=== PATIENT | female | born 1950 | race African-American/Black ===

== ENCOUNTER 2018-03-13 15:07 | Observation (INO) | payer MEDICARE, MEDICAID ==
--- NOTE | 2018-03-13 17:37 | RAD ---
PORTABLE CHEST 1 VIEW: Date: 03/11/18 Time: 1638 hours HISTORY: Dyspnea. FINDINGS: The heart size is borderline. The aorta is tortuous. The lungs are expanded without focal areas of co nsolidation, pneumothoraces, or pleural effusions. There is no evidence of monique pulmonary edema. IMPRESSION: No acute process. POS: SENA
[2018-03-13 18:50] LABS: Bilirubin Negative (Negative); Blood, Urine Negative (Negative); Clarity CLEAR (Clear); Glucose, Urine (Dipstick) Negative (Negative); Leukocyte Negative (Negative); Nitrite Negative (Negative); Protein, Urine (Dipstick) Negative (Neg-Trace); Specific Gravity, Urine 1.008 (1.002-1.036); Urobilinogen 0.2 mg/dL (0.2-1.0); pH, Urine 7.5 (5.0-9.0)
[2018-03-13 19:04] LABS: #Eosinphils 0.1 thou/uL (0.0-0.7); #Monocytes 0.6 thou/uL (0.11-0.59); #Neutrophils 6.1 thou/uL (1.40-6.50); %Basophils 0.2 % (0.0-1.0); %Eosinophils 0.8 % (0.0-10.0); %Lymphocytes 22.6 % (21.0-51.0); %Monocytes 7.2 % (0.0-10.0); %Neutrophils 69.1 % (42.0-75.0); Hemoglobin 11.2 g/dL (12.0-16.0); Mean Corpuscular HGB CONC 32.4 g/dL (32.0-36.0); Mean Corpuscular Hemoglobin 31.5 pg (27.0-31.0); Mean Corpuscular Volume 97.3 fL (78.0-98.0); Platelet Count 315 thou/uL (130-400); RBC Distribution Width 12.8 % (11.5-14.5); Red Blood Cell (RBC) Count 3.57 mill/uL (4.20-5.40); White Blood Cell (WBC) Count 8.8 thou/uL (4.8-10.8)
[2018-03-13 19:25] LABS: ALT (SGPT) 13 U/L (8-55); AST (SGOT) 16 U/L (5-34); Albumin 4.1 g/dL (3.4-4.8); Alkaline Phosphatase 84 U/L (40-150); Anion Gap 13 mmol/L (10-20); BUN (Urea Nitrogen) 15 mg/dL (9.8-20.1); Bilirubin, Total 0.3 mg/dL (0.2-1.2); CK (CPK) 450 U/L (29-168); Calc. Creatinine Clearance 0 mL/min (70-130); Calcium 9.5 mg/dL (7.8-10.44); Carbon Dioxide 24 mmol/L (23-31); Chloride 108 mmol/L (98-107); Estimated GFR-MDRD 80; Globulin 3.2 g/dL (2.4-3.5); Glucose 102 mg/dL (80-115); Lipase 16 U/L (8-78); Potassium 3.9 mmol/L (3.5-5.1); Protein, Total 7.3 g/dL (6.0-8.3); Sodium 141 mmol/L (136-145)
[2018-03-13 19:29] LABS: CKMB 1.2 ng/mL (0-6.6); Troponin I Less than 0.010 ng/mL (< 0.028)
[2018-03-13] MEDS ORDERED: Nitroglycerin 2% Ointment 1 INCH/1 GM Packet ONE (20:25)
[2018-03-13 23:02] LABS: Troponin I Less than 0.010 ng/mL (< 0.028)
[2018-03-13] MEDS ORDERED: Ondansetron ODT 4 MG TAB SL PRN (23:04)
[2018-03-13] MEDS ORDERED: Acetaminophen 325 MG TAB PO PRN (23:04)
[2018-03-13] MEDS ORDERED: Ondansetron HCl/PF 4 MG/2 ML Vial IVP PRN (23:04)
[2018-03-13 23:09] VITALS: BMI 47.2
--- NOTE | 2018-03-14 11:04 | HP ---
DATE OF ADMISSION: 03/14/2018 PRIMARY CARE PROVIDER: Dr. Jose Mike. CHIEF COMPLAINT: Knee pain. HISTORY OF PRESENT ILLNESS: This is a 67-year-old -[place] African female who presented to [facility] Emergency Department complaining of bilateral knee pain. The patient states she has had p ain in the knees for over 20 years, worse in the last 12 years, limiting her mobility, necessitating the use of a rolling walker for mobilization. The patient denied any direct injury, trauma, but does state she has lower extremity swelling which is chronic involving her ankles and tops of her feet. The patient denied any specific change to her chronic medication regimen and states she has daily cristhian n in her knees. The patient has been evaluated in the past by the Orthopedic Service with summer tirob for conservative management. The patient has taken Tylenol and Randall aspirin for relief. The patient denies any specific associated symptoms, including chest pain, shortness of breath, cough, fe efren, or unilateral lower extremity swelling. The patient states her knee pain got worse after caring for her ill father, helping him transfer from bed to wheelchair in the home. In the emergency room, the patient received aspirin 324 mg and transdermal nitroglycerin after questionable elevated blood pressure. Highest recorded blood pressure was 188/79. The patient states she takes ranitidine, and oxybutynin chronically. PAST MEDICAL HISTORY: 1. Hyperlipidemia. 2. Hypertension. 3. Morbid obesity. 4. Degenerative joint disease/osteoarthritis. PAST SURGICAL HISTORY: Status post hysterectomy. CURRENT MEDICATIONS: 1. Ranitidine 150 mg p.o. daily. 2. Oxybutynin 5 mg p.o. daily. ALLERGIES: IBUPROFEN. FAMILY HISTORY: Positive for hypertension. SOCIAL HISTORY: The patient resides in [place], [place]. No current alcohol, tobacco or illicit drug use. Ambulates with use of a rolling walker. Disabled. REVIEW OF SYSTEMS: The following complete review of systems was negative, unless otherwise mentioned in the HPI or below: Constitutional: Weight loss or gain, ability to conduct usual activities. Skin: Rash, itching. Eyes: Double vision, pain. ENT/Mouth: Nose bleeding, neck stiffness, pain, tenderness. Cardiovascular: Palpitations, dyspnea on exertion, orthopnea. Respiratory: Shortness of breath, wheezing, cough, hemoptysis, fever or night sweats. Gastrointestinal: Poor appetite, abdominal pain, heartburn, nausea, vomiting, constipation, or diarr hea. Genitourinary: Urgency, frequency, dysuria, nocturia. Musculoskeletal: Pain, swelling. Neurologic/Psychiatric: Anxiety, depression. Allergy/Immunologic: Skin rash, bleeding tendency. PHYSICAL EXAMINATION: VITAL SIGNS: Blood pressure 176/78, pulse 80, respiratory rate 20, temperature 98.6 degrees Fahrenhe it, O2 saturation 99% on room air. GENERAL APPEARANCE: This is a 67-year-old -[place] African female, alert and oriented x3, pleasant, conversant, talkative, in no acute distress. HEENT: Pupils are equal, round, and reactive to light and accommodation. Extraocular muscles are in tact. No scleral icterus, no conjunctival injection. Nares patent. OP is clear. Teeth in fair rep air. NECK: Supple, no cervical adenopathy, no thyromegaly, no carotid bruits, no JVD appreciated. Cervic al spine with full active and passive range of motion. CHEST: Lungs are clear to auscultation bilaterally. CARDIOVASCULAR: S1, S2, without noted murmur, rub or gallop. ABDOMEN: Obese, soft, nontender, nondistended. Bowel sounds are positive in all four quadrants. Th ere is no hepatosplenomegaly, no abdominal bruits, no rebound or guarding appreciated. EXTREMITIES: Warm and dry with fair turgor. Bilateral edema below the knee to the dorsum of the fee t bilaterally. Chronic skin changes consistent with venous stasis. Chronic lymphedema. Pulses are palpable distally at the dorsalis pedis, posterior tibial, and popliteal arteries bilaterally. Capil krishan refill less than 2 seconds. NEUROLOGIC: Cranial nerves II through XII are grossly intact. No focal or lateralizing signs apprec iated. MUSCULOSKELETAL: Mild tenderness to palpation along the bilateral joint line of the knees. No palpa ble mass. No fluctuance noted. No calor or erythema noted. PERTINENT LABORATORY DATA AND X-RAY FINDINGS: BNP 102. Troponin negative x1. EKG dated 03/13/2018 by my interpretation shows sinus mechanism with heart rates in the 80s. Attenuated R waves noted in the precordial leads. Normal axis. No acute ST-T wave changes appreciated. Portable chest x-ray sh owed no acute cardiopulmonary process. ASSESSMENT AND PLAN: 1. Bilateral knee pain. The patient's clinical exam and history consistent with osteoarthritis of b ilateral knees. Recommend orthopedic outpatient followup for further evaluation to include radiograp hic evaluation and consideration for outpatient physical therapy and/or consideration for surgical in tervention. Trial of tramadol 50 mg p.o. q.6 hours p.r.n. pain. 2. Hypertension, labile. Recommend outpatient follow up with primary care provider for further eval uation and serial monitoring. 3. Morbid obesity. Recommend weight loss program and heart healthy diet. Recommend outpatient phys ical therapy and supervised exercise regimen. 4. Overactive bladder. Continue oxybutynin 5 mg daily. 5. Code status is full. Surrogate medical decision maker is patient's son. DISPOSITION: Discharged home on 03/14/2018. FOLLOWUP: Follow up with her primary care provider, Dr. Jose Mike. The patient recomme nded to follow up with Dr. Nicole with Orthopedic Surgery [facility] and to call his office for appointme nt, time and date.
[2018-03-14] MEDS ORDERED: traMADol HCl 50 MG TAB PO SCH (12:15)
[2018-03-14 13:12] VITALS: BP 148/68; TEMP 98.1
[2018-03-14 17:03] LABS: Troponin I Less than 0.010 ng/mL (< 0.028)
== END 2018-03-14 15:10 | disposition home or self-care (01) ==
LOC: ERS 15:07 → 2NO 15:07 → INTOOBSV 19:57
PROVIDERS: ADMIT Hospitalist; ATTEND Hospitalist
DX: M25.561 Pain in right knee (principal); M25.562 Pain in left knee; M79.89 Other specified soft tissue disorders; I10 Essential (primary) hypertension; E78.5 Hyperlipidemia, unspecified; M19.90 Unspecified osteoarthritis, unspecified site; N32.81 Overactive bladder; E66.01 Morbid (severe) obesity due to excess calories; Z68.42 Body mass index [BMI] 45.0-49.9, adult; Z79.899 Other long term (current) drug therapy; Z88.6 Allergy status to analgesic agent
CPT/HCPCS: 51701; 71045; 80053; 81003; 82550; 82553; 82962; 83690; 83880; 84484 ×3; 85025; 87086; 93005; 99285; G0378 ×2; 36415; 36416; A4353

== ENCOUNTER 2018-03-17 19:06 | Emergency (ER) | payer MEDICARE, MEDICAID | END 2018-03-17 21:09 | disposition home or self-care (01) | LOC: ERS 19:06 | DX: G89.29 Other chronic pain (principal); M25.561 Pain in right knee; E78.2 Mixed hyperlipidemia; I10 Essential (primary) hypertension; E66.9 Obesity, unspecified; Z79.899 Other long term (current) drug therapy | CPT/HCPCS: 99283 ==